=== PATIENT | female | born 1970 | race Caucasian/White ===

== ENCOUNTER 2016-08-04 13:16 | Emergency (ER) | payer BC ==
[2016-08-04 13:47] VITALS: BP 111/60
--- NOTE | 2016-08-04 14:16 | UC ---
Throat Pain/Nasal Juan Alberto HPI - HPI Summary HPI Summary: sinus pain/pressure/green drainage for over 4 weeks. Started as a cold, seemed to get better, then sinuses got progressively more painful and pressurized. Green drainage in past week. Post-nasal drip. Rare dry cough. No fever. Headaches, pressure when bending forward - History of Current Complaint Chief Complaint: UCRespiratory Stated Complaint: RESPIRATORY COMPLAINT Time Seen by Provider: 08/04/16 13:59 Hx Obtained From: Patient Hx Last Menstrual Period: 08/02/16 Onset/Duration: Gradual Onset, Lasting Weeks - 4 Severity: Moderate Cough: Nonproductive Associated Signs & Symptoms: Positive: Sinus Discomfort, Nasal Discharge. Negative: Dysphagia, FB Sensation, Wheezing, Hoarseness, Fever - Epiglottits Risk Factors Epiglottis Risk Factors: Negative - Allergies/Home Medications Allergies/Adverse Reactions: Allergies Allergy/AdvReac Type Severity Reaction Status Date / Time Methotrexate Allergy Mild very Verified 08/04/16 13:40 nauseated embrel Allergy Severe Anaphylatic Uncoded 08/04/16 13:40 Shock Home Medications: Home Medications Aspirin [Aspirin Adult Low Dose] 81 mg PO ONCE PRN 08/04/16 [History Confirmed 08/04/16] Pseudoephedrine TAB* [Sudafed TAB*] 30 mg PO Q6H PRN 08/04/16 [History Confirmed 08/04/16] PMH/Surg Hx/FS Hx/Imm Hx Previously Healthy: Yes - except for occasional sinusitis episodes Endocrine History Of: Denies: Diabetes Cardiovascular History Of: Denies: Cardiac Disorders Respiratory History Of: Denies: Asthma - Surgical History Surgical History: Yes Surgery Procedure, Year, and Place: laparoscopy - Family History Known Family History: Positive: Hypertension - Social History Occupation: Employed Full-time Lives: With Family Alcohol Use: None Substance Use Type: None Smoking Status (MU): Never Smoked Tobacco - Immunization History Most Recent Influenza Vaccination: 2016 Review of Systems Constitutional: Negative Skin: Negative Eyes: Negative ENT: Nasal Discharge Respiratory: Cough Cardiovascular: Negative Gastrointestinal: Negative Genitourinary: Negative Motor: Negative Neurovascular: Negative Musculoskeletal: Negative Neurological: Negative Psychological: Negative All Other Systems Reviewed And Are Negative: Yes Physical Exam Triage Information Reviewed: Yes Appearance: Well-Appearing, No Pain Distress, Well-Nourished Vital Signs: Initial Vital Signs Temp 98.3 F 08/04/16 13:42 Pulse 73 08/04/16 13:42 Resp 18 08/04/16 13:42 BP 111/60 08/04/16 13:42 Pulse Ox 100 08/04/16 13:42 Vital Signs Reviewed: Yes Eye Exam: Normal ENT: Positive: Hearing grossly normal, Pharynx normal, Nasal congestion, TMs normal, Other: - tenderness over maxillary sinuses; no redness or swelling. Negative: Tonsillar swelling, Tonsillar exudate, Trismus, Muffled/hoarse voice Neck exam: Normal Neck: Positive: Supple Respiratory Exam: Normal Cardiovascular: Positive: RRR, No Murmur, Pulses Normal, Brisk Capillary Refill Musculoskeletal Exam: Normal Neurological Exam: Normal Psychological Exam: Normal Skin Exam: Normal Throat Pain/Nasal Course/Dx - Differential Dx/Diagnosis Differential Diagnosis/HQI/PQRI: Sinusitis, URI Provider Diagnoses: sinusitis Discharge - Discharge Plan Condition: Stable Disposition: HOME Prescriptions: Amoxicillin/Clavulanate TAB* [Augmentin TAB 875*] 875 mg PO BID #20 tab Fluconazole [Diflucan 150 MG (NF)] 150 mg PO ONCE PRN #2 tab PRN Reason: vaginal itching Patient Education Materials: Sinusitis (ED) Forms: *Work Release Referrals: Luis BOLAND,Elyse Jamison [Primary Care Provider] -
== END 2016-08-04 14:19 | disposition home or self-care (01) ==
LOC: UCCORT 13:16
DX: J32.9 Chronic sinusitis, unspecified (principal); Z88.8 Allergy status to other drugs, medicaments and biological substances
CPT/HCPCS: 99202; G0463